=== PATIENT | male | born 1945 | race Caucasian/White ===

== ENCOUNTER → 2019-06-09 | Outpatient (CLI) | payer MEDICARE | END | disposition home or self-care (01) | LOC: PCVCCLINIC 15:04 | PROVIDERS: ATTEND Internal Medicine Cardiovascular Disease | DX: I48.91 Unspecified atrial fibrillation (principal); I10 Essential (primary) hypertension; E78.5 Hyperlipidemia, unspecified; R06.02 Shortness of breath; E11.9 Type 2 diabetes mellitus without complications; E78.00 Pure hypercholesterolemia, unspecified; Z79.82 Long term (current) use of aspirin; Z87.891 Personal history of nicotine dependence | CPT/HCPCS: 36415; 80061; 93005; G0463 ==

== ENCOUNTER → 2019-06-17 | Outpatient (CLI) | payer MEDICARE ==
--- NOTE | 2019-06-17 16:09 | PCVCIMAG ---
APPROVED REPORT Study performed: 06/17/2019 13:54:43 EXAM: Comprehensive 2D, Doppler, and color-flow Echocardiogram Patient Location: Echo lab Status: routine BSA: 2.16 HR: 92 bpmBP: 130/90 mmHg Rhythm: Atrial Fibrillation Other Information Study Quality: Good Risk Factors: Cardiac Risk Factors: HTN, Hyperlipidemia, SOB Indications Atrial Fibrillation 2D Dimensions IVSd: 14.55 (7-11mm)LVOT Diam: 20.99 (18-24mm) LVDd: 41.38 mm PWd: 9.25 (7-11mm)Ascending Ao: 35.81 (22-36mm) LVDs: 34.08 (25-40mm) Left Atrium: 55.58 (27-40mm) Aortic Root: 31.13 mm LV Single Plane 4CH: 56.06 % LV Single Plane 2CH: 54.76 % Biplane EF: 55.2 % Volumes Left Atrial Volume (Systole) Single Plane 4CH: 87.49 mLSingle Plane 2CH: 82.43 mL LA ESV Index: 41.00 mL/m2 Aortic Valve AoV Peak Raji.: 1.09 m/s AO Peak Gr.: 4.71 mmHgLVOT Max P.96 mmHg LVOT Max V: 0.75 m/s FABIEN Vmax: 2.38 cm2 Mitral Valve E/A Ratio: 0.8 MV Decel. Time: 296.17 ms MV E Max Raji.: 0.65 m/s MV A Raji.: 0.86 m/s Pulmonary Valve PV Peak Gr.: 0.96 mmHg Tricuspid Valve TR Peak Raji.: 2.43 m/s TR Peak Gr.: 24.08 mmHg Left Ventricle The left ventricle is normal size. There is normal LV segmental wall motion. There is normal left ventricular wall thickness. Left ventricular systolic function is normal. The left ventricular ejection fraction is within the normal range. LVEF is 55-60%. This study is not technically sufficient to allow evaluation of the LV diastolic function due to atrial fibrillation. Right Ventricle The right ventricle is normal size. The right ventricular systolic function is normal. Atria Left atrium is moderately dilated. Right atrium is moderately dilated. Aortic Valve The aortic valve is normal in structure. No aortic regurgitation is present. There is no aortic valvular stenosis. Mitral Valve The mitral valve is normal in structure. Mioderate mitral regurgitation. No evidence of mitral valve stenosis. Tricuspid Valve The tricuspid valve is normal in structure. Mild to moderate tricuspid regurgitation. Pulmonary artery pressure is 34mmHg. Pulmonic Valve The pulmonary valve is normal in structure. There is no pulmonic valvular regurgitation. Great Vessels The aortic root is normal in size. IVC is mildly dilated. Pericardium There is no pericardial effusion. <Conclusion> Left ventricular systolic function is normal. There is normal LV segmental wall motion. EF 55-60% Both atria are moderately dilated. The aortic valve is normal in structure. No aortic regurgitation or stenosis The mitral valve is normal in structure. Moderate mitral regurgitation. Mild to moderate tricuspid regurgitation. Pulmonary artery pressure of 34mmHg. There is no pericardial effusion.
== END | disposition home or self-care (01) ==
LOC: PCVCIMAG 13:43
PROVIDERS: ATTEND Internal Medicine Cardiovascular Disease
DX: I48.91 Unspecified atrial fibrillation (principal); R06.09 Other forms of dyspnea; E11.9 Type 2 diabetes mellitus without complications; E78.00 Pure hypercholesterolemia, unspecified; Z87.891 Personal history of nicotine dependence
CPT/HCPCS: 93005; 93306; G0463

== ENCOUNTER → 2019-07-05 | Outpatient (CLI) | payer MEDICARE ==
[~2019-07-05] MED LIST: REGADENOSON 0.4 MG/5 ML DISP.SYRIN. IV ONE
--- NOTE | 2019-07-05 14:45 | PCVCIMAG ---
APPROVED REPORT Imaging Protocol: Rest Tc-99m/Stress Tc-99m 1 day Study performed: 07/05/2019 09:11:28 Indication: Atrial Fibrillation, Palpitations Patient Location: Out-Patient Stress Nurse: Karley Crowe RN, Jazmyn Mckeon RN [place] Tech:Ashly Lirahbun [facility] Ht: 6 ft 0 in Wt: 206 lbs BSA: 2.16 m2 HR: 75 bpm BP: 162/99 mmHg BMI: 27.9 Rhythm: Atrial Fibrillation Medical History Medical History: Hyperlipidemia, HTN, Former Smoker, Atrial Fibrillation Medications: Norvasc, ASA, Atovastatin, Cardizem, FO, Metoprolol, Metformin, Xarelto Allergies: No known drug allergies Cardiac Risk Factors: Age Pretest Chest Pain Characteristics: No chest pain Exercise History: Indeterminate Meds Held (24 hrs): Metoprolol Resting Data Rest SPECT myocardial perfusion imaging was performed in supine position 45 minutes following the intravenous injection of 10.1 mCi of Tc-99m Sestamibi. Time of rest injection: 829 Administration Route: IV Administration Site: Right Hand Pharmacologic Stress Pharmacologic stress test was performed by injecting Regadenoson 0.4 mg IV push over 10-15 seconds immediately followed by the intravenous injection of 33.3 mCi of Tc-99m Sestamibi. Time of stress injection: 944 Date: 07/05/2019 Administration Route: IV Administration Site: Right Hand Gated Stress SPECT was performed 45 minutes after stress injection. The images were gated to evaluate regional wall motion and calculate left ventricular ejection fraction. Stress Test Details Stress Test: Pharmacologic stress was paired with low level exercise. Reason for pharmacologic stress test: physical limitation, Afib. HRMax Heart Rate (APMHR): 149 bpm Resting HR: 75 bpmTarget HR (85% APMHR): 126 bpm Max HR Achieved: 100 bpm % of APMHR: 67 Recovery HR: 85 bpm BP Resting BP: 162/99 mmHg Max BP: 164/84 mmHg Recovery BP: 142/88 mmHg ECG Resting ECG: Atrial Fibrillation Stress ECG: Atrial Fibrillation Recovery ECG: Atrial Fibrillation Clinical Reason for Termination: Completed protocol Stress Symptoms: Dyspnea Exercise duration: 4 min 00 sec Exercise capacity: 1.6 METs Symptoms resolved with caffeine. Stress ECG Conclusion ECG: Non-ischemic Study Quality Study: Good Study Data Post stress, the left ventricular ejection was 74%.. SSS: 0 SRS: 1 SDS: 0 TID = 0.91. Perfusion No evidence of stress induced ischemia or prior myocardial infarction. Wall Motion Normal left ventricular size and function with no regional wall motion abnormalities. Nuclear Conclusion No evidence of stress induced ischemia or prior myocardial infarction. Normal left ventricular size and function with no regional wall motion abnormalities. Post stress, the left ventricular ejection was 74%. No prior study available for comparison. Interpreted by: Roni Avila MD Electronically Approved: 07/05/2019 14:08:10 <Conclusion> ECG: Non-ischemic
== END | disposition home or self-care (01) ==
LOC: PCVCIMAG 08:55
PROVIDERS: ATTEND Internal Medicine Cardiovascular Disease
DX: I48.91 Unspecified atrial fibrillation (principal); R06.02 Shortness of breath; R00.2 Palpitations
CPT/HCPCS: 78452; 93017; A9500; J2785

== ENCOUNTER → 2019-07-22 | Outpatient (CLI) | payer MEDICARE | END | disposition home or self-care (01) | LOC: PCVCCLINIC 13:00 | PROVIDERS: ATTEND Nurse Practitioner Adult Health | DX: I48.91 Unspecified atrial fibrillation (principal); E78.00 Pure hypercholesterolemia, unspecified; E11.9 Type 2 diabetes mellitus without complications | CPT/HCPCS: 93005; G0463 ==